=== PATIENT | male | born 1940 | race Caucasian/White ===

== ENCOUNTER 2021-10-01 15:24 | Emergency (ER) | payer OTHER ==
[~2021-10-01] VITALS: Ht 180.3 cm; Wt 87.1 kg
[2021-10-01] MEDS ORDERED: ZESTRIL2.5 MG PO (15:33)
[2021-10-01] MEDS ORDERED: LANTUS SOL100 UNIT/1 SQ (15:33)
[2021-10-01] MEDS ORDERED: HUMALOG100 UNIT/1 (15:34)
== END 2021-10-01 18:43 | disposition home or self-care (01) ==
LOC: ER 15:24
DX: E11.10 Type 2 diabetes mellitus with ketoacidosis without coma (principal); Z20.822 Contact with and (suspected) exposure to COVID-19; Z79.4 Long term (current) use of insulin; Z79.84 Long term (current) use of oral hypoglycemic drugs